=== PATIENT | female | born 1960 | race Caucasian/White ===

== ENCOUNTER → 2024-10-03 06:59 | Outpatient (REF) | payer BC, SELFPAY | LOC: RCS 06:59 | PROVIDERS: ATTENDING PHYSICIAN Internal Medicine; FAMILY PHYSICIAN Internal Medicine Geriatric Medicine | DX: Z01.810 Encounter for preprocedural cardiovascular examination (principal); I10 Essential (primary) hypertension; I34.1 Nonrheumatic mitral (valve) prolapse | CPT/HCPCS: 93306 ==

== ENCOUNTER 2024-10-08 06:04 | Day surgery (SDC) | payer BC, SELFPAY ==
[2024-09-19 09:01] LABS: Hematocrit 43.3 % (37.0-47.0); Hemoglobin 14.2 g/dL (12.0-16.0); Mean Corp Hgb Conc. 32.8 g/dL (33.0-37.0); Mean Corpuscular Hgb 30.1 pg (27.0-31.0); Mean Corpuscular Volume 91.7 fL (81.0-99.0); Mean Platelet Volume 9.6 fL (7.4-10.4); Platelet Count 284 10^3/uL (130-400); Red Blood Cell Count 4.72 10^6/uL (4.20-5.40); Red Cell Dist. Width 12.9 % (11.5-14.5); White Blood Cell Count 5.7 10^3/uL (4.8-10.8)
[2024-09-19 09:58] LABS: Blood Urea Nitrogen 17 mg/dl (7-17); Calcium 9.9 mg/dl (8.4-10.2); Carbon Dioxide 34 mmol/L (22-30); Chloride 102 mmol/L (98-107); Glucose 90 mg/dl (70-99); Potassium 4.1 mmol/L (3.5-5.1); Sodium 143 mmol/L (135-145); eGFR > 60.00
[2024-09-19 12:39] VITALS: BMI 28.1
[2024-10-08] VITALS (12 sets, daily range): BP systolic 111–156; BP diastolic 56–83; BMI 28.1
[2024-10-08] MEDS: HEPARIN 5000 UNITS SC (06:33)
[2024-10-08] MEDS: NORMOSOL-R/PLASMALYTE-A 1000 IV (06:33)
[2024-10-08] MEDS: Pyridium 200 MG PO (06:33)
[2024-10-08] MEDS: ZOFRAN 4 MG IV (12:05)
[2024-10-08] MEDS: TYLENOL 650 MG PO (13:27)
== END 2024-10-08 14:16 | disposition home or self-care (01) ==
LOC: SDS 06:04
PROVIDERS: ATTENDING PHYSICIAN Obstetrics & Gynecology; FAMILY PHYSICIAN Internal Medicine Geriatric Medicine
DX: N81.3 Complete uterovaginal prolapse (principal); N39.3 Stress incontinence (female) (male); N80.03 Adenomyosis of the uterus; D25.9 Leiomyoma of uterus, unspecified; N83.8 Other noninflammatory disorders of ovary, fallopian tube and broad ligament
CPT/HCPCS: 57425; 58542; 57250; 57288; 88305; 36415; 80048; 85027; 86850; 86900; 86901; 93005; C1713; C1763; C1771